=== PATIENT | female | born 1965 | race African-American/Black ===

== ENCOUNTER 2020-12-21 20:07 | Emergency (ER) | payer OTHER ==
[~2020-12-21] VITALS: Ht 170.2 cm; Wt 85.7 kg
[2020-12-21 21:35] VITALS: BP 158/83
== END 2020-12-21 21:25 | disposition home or self-care (01) ==
LOC: ER 20:13
DX: M25.561 Pain in right knee (principal); M79.661 Pain in right lower leg; E78.5 Hyperlipidemia, unspecified; J45.909 Unspecified asthma, uncomplicated; M54.9 Dorsalgia, unspecified; G89.29 Other chronic pain
CPT/HCPCS: 93971; 99283

== ENCOUNTER 2021-09-16 21:41 | Emergency (ER) | payer OTHER ==
[~2021-09-16] VITALS: Ht 170.2 cm; Wt 85.7 kg
[2021-09-16] MEDS ORDERED: HYDROCODONE/APAP 10MG-325MG TAB PO ONE (23:30)
== END 2021-09-16 23:58 | disposition home or self-care (01) ==
LOC: ER 21:48
DX: R51.9 Headache, unspecified (principal); S00.83XA Contusion of other part of head, initial encounter; V43.52XA Car driver injured in collision with other type car in traffic accident, initial encounter; Y92.488 Other paved roadways as the place of occurrence of the external cause; E78.5 Hyperlipidemia, unspecified; J45.909 Unspecified asthma, uncomplicated; M54.9 Dorsalgia, unspecified; G89.29 Other chronic pain
CPT/HCPCS: 70450; 72125